=== PATIENT | male | born 1955 | race Caucasian/White ===

== ENCOUNTER 2020-04-21 12:16 | Outpatient (CLI) | payer MEDICARE, MEDICAID, SELFPAY ==
--- NOTE | 2020-04-21 12:27 | USCV_ITS ---
Eduin Grimes Age: 64 Gender: M : 1955 Exam Date: 04/21/2020 12:50 Ordering Phys: Hilda Turner MD Technologist: Kate Parks Exam Location: [facility] [place] Indication: MURMUR BP: / HR: 67 Rhythm: Sinus Technical Quality: Adequate MEASUREMENTS (Male / Female) Normal Values 2D ECHO LV Diastolic Diameter PLAX 3.5 cm 4.2 - 5.9 / 3.9 - 5.3 cm LV Systolic Diameter PLAX 2.2 cm LV Chamber Size 3.7 cm IVS Diastolic Thickness 1.0 cm 0.6 - 1.0 / 0.6 - 0.9 cm IVS Systolic Thickness 1.7 cm LVPW Diastolic Thickness 1.2 cm 0.6 - 1.0 / 0.6 - 0.9 cm LVPW Systolic Thickness 1.5 cm RV Chamber Size 2.5 cm LVOT Diameter 2.0 cm LV Ejection Fraction 2D Teich 70.0 % LV Ejection Fraction MOD 2C 65.8 % LV Ejection Fraction 2C AL 65.3 % LA Diameter 2.3 cm LA Width 3.2 cm LA Height 3.6 cm RA Width 4.1 cm RA Height 4.0 cm Aorta at Sinotubular Diameter 3.5 cm M-MODE LV Diastolic Diameter MM 4.6 cm 4.2 - 5.9 / 3.9 - 5.3 cm LV Systolic Diameter MM 3.2 cm LV Ejection Fraction MM Teich 56.2 % IVS Diastolic Thickness MM 1.0 cm 0.6 - 1.0 / 0.6 - 0.9 cm IVS Systolic Thickness MM 1.1 cm LVPW Diastolic Thickness MM 1.4 cm 0.6 - 1.0 / 0.6 - 0.9 cm LVPW Systolic Thickness MM 1.4 cm RV Diastolic Diameter MM 0.8 cm Aortic Annulus Diameter 3.9 cm LA Ao Ratio MM 0.6 MV E Point Septal Separation 0.7 cm DOPPLER AV Peak Velocity 247.0 cm/s LVOT Peak Velocity 80.0 cm/s AV Area Cont Eq vti 1.2 cm squared AV Area Cont Eq pk 1.0 cm squared MV Area PHT 3.1 cm squared Mitral E to A Ratio 0.7 MV E' Velocity 5.0 cm/s Mitral E to MV E' Ratio 11.4 Mitral E to LV E' Lateral Ratio 12.0 Mitral E to LV E' Septal Ratio 10.8 TR Peak Velocity 165.1 cm/s TR Peak Gradient 10.9 mmHg TR Mean Velocity 125.4 cm/s TR Mean Gradient 6.5 mmHg TR Velocity Time Integral 36.1 cm TV Peak E Velocity 49.0 cm/s Right Atrial Pressure 3.0 mmHg Pulmonary Artery Systolic Pressu 13.9 mmHg FINDINGS Left Ventricle Normal left ventricular size, systolic function and wall thickness, with no regional wall motion abnormalities. Grade I/IV diastolic dysfunction (abnormal relaxation filling pattern), normal to mildly elevated filling pressures. Left ventricular ejection fraction is estimated at 60 %. Right Ventricle Normal right ventricular size and systolic function. Normal right ventricular systolic pressure. Right Atrium The right atrium is normal in size. Left Atrium The left atrium is normal in size. Mitral Valve Structurally normal mitral valve without significant stenosis or prolapse. There is no mitral regurgitation. Aortic Valve Structurally normal trileaflet aortic valve. Moderate aortic valve stenosis, mean gradient 12.6 mmHg, DENNIS 1.2 cm squared. Moderate aortic valve regurgitation. Tricuspid Valve Structurally normal tricuspid valve. Trace tricuspid valve regurgitation. Pulmonic Valve Structurally normal pulmonic valve without significant stenosis. There is no pulmonic regurgitation. Pericardium Normal pericardium without effusion. Aorta Normal ascending aorta dimension. CONCLUSIONS Normal left ventricular size, systolic function and wall thickness, with no regional wall motion abnormalities. Grade I/IV diastolic dysfunction (abnormal relaxation filling pattern), normal to mildly elevated filling pressures. Left ventricular ejection fraction is estimated at 60 %. Structurally normal trileaflet aortic valve. Moderate aortic valve stenosis, mean gradient 12.6 mmHg, DENNIS 1.2 cm squared. Moderate aortic valve regurgitation. There are no prior echocardiogram studies to compare. Dr. Kleber Ritter MD (Electronically Signed) Final Date: 21 April 2020 15:48 S
== END 2020-04-21 12:17 | disposition home or self-care (01) ==
LOC: RAD 12:20
PROVIDERS: Visit Provider Specialist
DX: R01.1 Cardiac murmur, unspecified (principal); I35.0 Nonrheumatic aortic (valve) stenosis
CPT/HCPCS: 93306

== ENCOUNTER 2020-06-03 07:29 | Outpatient (CLI) | payer MEDICARE, MEDICAID, SELFPAY ==
[2020-06-03 08:01] VITALS: BMI 23.9
--- NOTE | 2020-06-03 08:04 | ECG_ITS ---
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 Interpretive Statements NAME OF STUDY: LEXISCAN SESTAMIBI STRESS TEST INDICATION: Shortness of Breath PROCEDURE: At the baseline, the EKG revealed normal sinus rhythm with a poor R wave progression. Normal ST-T's. Possible old lateral wall VT. The baseline blood pressure was 115/81 mm Hg with a heart rate of 71 beats/min. Lexiscan was infused over a period of 20 seconds. A total of 0.4 milligrams of Lexiscan was infused. The stress phase was continued for a total of 5 minutes. Heart rate at the end of the stress phase was 90 with a blood pressure 127/85. The EKG at the peak infusion revealed no significant changes. Sestamibi was injected 20 seconds after the Lexiscan infusion. Blood pressure at the end of the recovery phase was 119/77 with a heart rate of 86 per minute. CONCLUSION: 1. No significant EKG changes with the LexiScan infusion 2. No LexiScan induced chest pain or cardiac arrhythmia 3. Normal blood pressure and heart rate response 4. Sestamibi/sestamibi perfusion scan pending; see separate report. Electronically Signed On 06-03-2020 20:25:12 CDT by Caroline Geiger M.D. [id number]
--- NOTE | 2020-06-03 08:05 | NMCV_ITS ---
NM alejandra perf SPECT r/s* [id number] Eduin Grimes Age: 64 Gender: M : 1955 Exam Date: 06/03/2020 08:24 Ordering Phys: Caroline Geiger MD ([email or web address]) Technologist: FARZANA Kay Exam Location: [facility] Indications: SOB, abnormal EKG STRESS TEST Please see separate stress test report in [facility] for full findings IMAGE PROTOCOL Rest/Stress 1 Lexiscan Day Radiopharmaceutical Dose (mCi) Administration Site Administered by Rest: Tc-99m 10.9 IV Dana Odilon, INSPECTOR METAL FABRICATING Sestamibi Stress:Tc-99m 32.8 IV Dana Odilon, INSPECTOR METAL FABRICATING Sestamibi Rest: 03-Jun-2020 60 Discovery 630 Stress: 03-Jun-2020 45 Discovery 630 0.4mg Lexiscan. Images obtained in supine and prone position. SPECT RESULTS Technical Quality: Good Raw Data Analysis: Normal Image Corrections: No attenuation or motion correction applied Summed Stress Score: 2 Summed Rest Score: 3 Summed Difference Score: 0 PERFUSION FINDINGS Small area of decreased tracer uptake in the apical inferior and LV apex with no significant reversibility FUNCTIONAL RESULTS (calculated via Gated SPECT) Stress Image LV EF (%): 56 Stress EDV (mL):97 TID: 1.05 Stress ESV (mL):43 FUNCTIONAL FINDINGS: Segmental wall motion analysis revealing no gross wall motion normalities. IMPRESSIONS 1. Myocardial perfusion imaging revealing small area of persistent decreases uptake in the apical inferior and LV apex, suggestive of myocardial scarring/attenuation artifact. 2. Normal ejection fraction 56%. 3. LV wall motion analysis revealing no gross wall motion normalities. 4. LV volume, upper limit of normal. No significant coronary ischemia, based on the above findings Dr Caroline Geiger MD FACC (Electronically Signed) Final Date: 03 June 2020 14:22 S
--- NOTE | 2020-06-03 09:19 | SUR.PHASEII ---
INTRA STRESS NOTE Patient unable to meet the physical demands of the treadmill. HR reached 122 bpm at maximum before fatigue set in and the patient could no longer continue. MD notification attempted, but no response at this time. Will try back for orders to change stress modality to Lexiscan as patient cannot complete the physical exercise portion of the exam. Patient adequately prepped for Lexiscan.
[2020-06-03] MEDS: regadenoson 0.4 Mg/5 ml Syringe IVP (09:31)
[2020-06-03 09:39] VITALS: BP 125/79; PULSE 88
== END 2020-06-03 07:30 | disposition home or self-care (01) ==
LOC: RAD 07:55 → CDL 07:55
PROVIDERS: Visit Provider Internal Medicine Cardiovascular Disease
DX: R06.02 Shortness of breath (principal); R94.31 Abnormal electrocardiogram [ECG] [EKG]
CPT/HCPCS: 78452; 93017; A9500; J2785

== ENCOUNTER 2020-06-18 10:53 | Emergency (ER) | payer MEDICARE, MEDICAID, SELFPAY ==
[2020-06-18 10:54] VITALS: BP 161/105; PULSE 83; RESP 17; TEMP 36.7; O2SAT 97; BMI 23.9
--- NOTE | 2020-06-18 10:59 | CT_ITS ---
WS: [id number] CT NECK WITH CONTRAST HISTORY: abscess TECHNIQUE: Contiguous 5 mm axial images are performed through the neck with intravenous contrast. Sag ittal and coronal reformats are also submitted. All CT scans at [facility] use at least o ne of these dose optimization techniques: automated exposure control; mA and/or kV adjustment per pat ient size (includes targeted exams where dose is matched to clinical indication); or iterative recons truction. CONTRAST: CONTRAST: Omnipaque 300; 95 mL IV. DLP: 709.73 mGy.cm COMPARISON: None available. Low-attenuation mass centered in the LEFT palatine tonsillar bed extends over a length of 3.4 cm x 2. 3 x 3.5 cm. Low attenuation in the central surrounded by mild peripheral enhancement. There is extens ion into the parapharyngeal soft tissue fat and mild mass effect upon the oropharynx. Cervical chain lymph nodes are present bilaterally but greatest on the LEFT. Largest lymph node measures up to 12 mm . No extension of the inflammatory process across the midline. Thyroid gland and salivary glands are normally enhancing with no masses. No osseous abnormalities. Visualized portions of the skull base demonstrate no abnormalities. Orbits and globes are within norm al limits. No soft tissue masses. Visualized paranasal sinuses and mastoid air cells are normal. Lung apices are clear. CT/CT neck w con* [id number] IMPRESSION: 1. LEFT tonsillar tonsillar bed abscess measuring 3.4 x 2.3 x 3.5 cm. 2. Reactive lymphadenopathy most significant on the LEFT neck.
--- NOTE | 2020-06-18 11:00 | ED_ITS ---
HPI - Syncope General: Chief Complaint: Syncope Stated Complaint: SEIZURE/ DEHYDRATION/ JAW PAIN Time Seen by Provider: 06/18/20 10:56 Source: patient and EMS Mode of arrival: EMS Limitations: no limitations History of Present Illness: HPI narrative: 64-year-old male states he was standing in line today started feeling lightheaded and had a seizure. 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 EMS states he is originally postictal but is now awake and alert. He states he feels dehydrated as he has had throat pain and difficulty swallowing and has had limited oral intake due to this. He states his throat pain is been going on for 2 days and rates it a 7 out of 10. Denies any fevers. Associated symptoms: Deny abdominal pain, chest pain, fever(s) or nausea Review of Systems Const: Denies: fever(s), chills, body aches or change in appetite Eyes: Denies: blurry vision or eye discomfort ENMT: Reports: throat pain Card: Denies: chest pain Resp: Denies: dyspnea GI: Denies: abdominal pain, nausea, vomiting or diarrhea : Denies: dysuria Musc: Denies: neck pain or back pain Skin/Breast: Denies: rash Neuro: Reports: seizure-like activity Psych: Denies: depression Abdullahi/Lymph: Denies: easy bruising All/Imm: Denies: urticaria PFSH ED PFSH: Medical History Abuse of smoked substance Aortic valve stenosis, acquired Elevated blood pressure reading Shortness of breath on exertion The EKG done on 05/11/2020 revealed sinus rhythm with poor our progression. Some nonspecific ST- T wave changes. Surgical History History of rotator cuff surgery Family History Other Family history unknown Social History Smoking and tobacco status: current every day smoker cigarettes Packs smoked per day: 1 Alcohol intake: current Alcohol intake frequency: holidays/special occasions only Desire information about substance/drug rehabilitation?: No History of recent travel: No Physical Exam Const: COMMON NORMALS: no acute distress, patient oriented x3 and healthy appearing HENMT: COMMON NORMALS: normocephalic and atraumatic HEAD & SCALP: normocephalic and atraumatic OTHER: Uvular deviation to the right with likely peritonsillar abscess to left tonsil. No problems handling secretions or swallowing Eye: COMMON NORMALS: Equal, round and reactive pupils present and EOMs intact bilaterally PUPIL: Yes Equal, round and reactive pupils present Neck/C-Spine: COMMON NORMALS: full ROM and supple Chest: COMMONS NORMALS: normal inspection of the chest and normal palpation of entire chest wall Resp: COMMON NORMALS: normal respiratory effort, No retractions, No use of accessory muscles and clear to auscultation bilaterally AUSCULTATION: clear to auscultation bilaterally Cardio: COMMON NORMALS: regular rate, regular rhythm and No murmurs present (Cardio) RATE: regular rate RHYTHM: regular rhythm GI: COMMON NORMALS: Normal to inspection, nondistended, normoactive bowel sounds present, Soft to palpation, non-tender and no masses PALPATION: Yes Soft to palpation Extremity: COMMON NORMALS: normal to inspection and full ROM Neuro: COMMON NORMALS: patient oriented x3, moves all extremities and no focal motor deficits Psych: COMMON NORMALS: mental status grossly normal, Normal thought process present and cooperative THOUGHT PROCESS: Normal thought process present Skin: COMMON NORMALS: no rashes or lesions noted and no wounds GENERAL SKIN EXAM: no rashes or lesions noted Course Vital Signs: Vital signs: Vital Signs Temperature 98.0 F 06/18/20 10:54 Pulse Rate 82 06/18/20 12:23 Respiratory Rate 20 H 06/18/20 12:23 Blood Pressure 162/97 06/18/20 12:23 Pulse Oximetry 98 06/18/20 12:23 MDM - Syncope MDM Narrative: Medical decision making narrative: Eduin presents here with a seizure and does have a long history of seizures. Patient is back to baseline here. Patient does have a peritonsillar abscess that is not causing any airway compromise. He is handling his secretions well. Patient given Decadron and clindamycin here. I spoke to Dr. Patel's office and he has an appointment in the morning with Dr. Patel. I informed patient is very important that he follows up with Dr. Patel as scheduled. Patient is to return if he has any worsening. He understands and agrees to plan. Lab Data: Labs: Lab Results 06/18/20 06/18/20 Range/Units 11:17 11:17 WBC 13.1 H (4.0-10.0) 10^3/ uL RBC 4.24 (4.1-5.3) 10^6/u L Hgb 14.2 (11.7-16.6) g/dL Hct 43.1 (42.0-52.0) % MCV 101.7 H (80-94) fL MCH 33.5 (28.0-34.0) pg MCHC 32.9 (30.0-36.0) g/dL RDW 13.2 (12.1-15.1) % Plt Count 190 (130-400) 10^3/c mm MPV 9.4 (7.4-10.4) fL Neut % (Auto) 80.0 % Lymph % (Auto) 9.1 % Stafford % (Auto) 9.3 % Eos % (Auto) 0.8 % Baso % (Auto) 0.3 % Neut # (Auto) 10.44 H (1.8-7.7) 10^3/u L Lymph # (Auto) 1.2 (0.8-4.8) 10^3/u L Stafford # (Auto) 1.2 H (0.2-0.9) 10^3/u L Eos # (Auto) 0.1 (0.0-0.8) 10^3/u L Baso # (Auto) 0.0 (0.0-0.1) 10^3/u L Nucleated RBC % (a uto) 0 % Nucleated RBCs # 0.0 /100WBC Sodium 140 (136-145) mmol/L Potassium 3.7 (3.5-5.1) mmol/L Chloride 106 (98-107) mmol/L Carbon Dioxide 27 (22-29) mmol/L Anion Gap 10.7 (5-19) BUN 12 (8-23) mg/dL Creatinine 1.0 (0.7-1.2) mg/dL GFR Calculation 75.7 L (90-130) mL/min Glucose 94 (65-115) mg/dL Calculated Osmolal ity 286 (285-295) mOsm/k g Calcium 8.4 L (8.5-10.5) mg/dL Imaging Data^: ct neck: Radiologist's impression: [address] [place] [address] CT Scan Report Signed Patient: Eduin Grimes Unit #: [id number] : 1955 Age/Sex: 64 / M ADM Date: 06/18/20 Loc: ER Room/Bed: Attending Dr: Ordering Provider/Ordering MD: Belkys Thomas MD Date of Service: 06/18/20 Procedure(s): CT neck w con* [id number] Accession Number(s): [id number] Report Number: [id number] WS: [id number] CT NECK WITH CONTRAST HISTORY: abscess TECHNIQUE: Contiguous 5 mm axial images are performed through the neck with intravenous contrast. Sagittal and coronal reformats are also submitted. All CT scans at [facility] use at least one of these dose optimization techniques: automated exposure control; mA and/or kV adjustment per patient size (includes targeted exams where dose is matched to clinical indication); or iterative reconstruction. CONTRAST: CONTRAST: Omnipaque 300; 95 mL IV. DLP: 709.73 mGy.cm COMPARISON: None available. Low-attenuation mass centered in the LEFT palatine tonsillar bed extends over a length of 3.4 cm x 2.3 x 3.5 cm. Low attenuation in the central surrounded by mild peripheral enhancement. There is extension into the parapharyngeal soft tissue fat and mild mass effect upon the oropharynx. Cervical chain lymph nodes are present bilaterally but greatest on the LEFT. Largest lymph node measures up to 12 mm. No extension of the inflammatory process across the midline. Thyroid gland and salivary glands are normally enhancing with no masses. No osseous abnormalities. Visualized portions of the skull base demonstrate no abnormalities. Orbits and globes are within normal limits. No soft tissue masses. Visualized paranasal sinuses and mastoid air cells are normal. Lung apices are clear. CT/CT neck w con* [id number] IMPRESSION: 1. LEFT tonsillar tonsillar bed abscess measuring 3.4 x 2.3 x 3.5 cm. 2. Reactive lymphadenopathy most significant on the LEFT neck. Discharge Plan Discharge Patient Disposition: Home Clinical Impression: Abscess, peritonsillar, Seizure Condition: Stable Prescriptions: New clindamycin HCl 300 mg capsule 300 mg PO Q8H 10 Days Qty: 30 RF: 0 No Action ibuprofen 200 mg capsule 200 mg PO Q8H PRN (Reason: Pain) RF: 0 lamotrigine 200 mg tablet 200 mg PO BID RF: 0 clobazam [Onfi] 20 mg tablet 40 mg PO BID Qty: 120 RF: 5 Discharge Orders: Discharge Order (Routine); Ordered 06/18/20 Ordered By: Belkys Thomas Referrals: Mendel Mari MD [Physician] - 1-3 days Discharge Diet: Advance as tolerated Discharge Activity: Resume usual activity Patient Instructions: Peritonsillar Abscess (ED) Discharge Date/Time: 06/18/20 13:37 Coding Level of Care Code ED Elementary Instructional Coach for [employer] Fwd Exam Comprehensive
[2020-06-18 11:09] VITALS: BP 181/103; PULSE 84; RESP 18; O2SAT 97
[2020-06-18] MEDS: sodium chloride 0.9% 1,000 ML 999 ML IV (11:18)
[2020-06-18] MEDS: dexamethasone 10 mg/mL INJ IVP (11:18)
[2020-06-18 11:26] LABS: Basophils % 0.3 %; Eosinophils # 0.1 10^3/uL (0.0-0.8); Eosinophils % 0.8 %; Hematocrit 43.1 % (42.0-52.0); Hemoglobin 14.2 g/dL (11.7-16.6); Lymphocytes # 1.2 10^3/uL (0.8-4.8); Lymphocytes % 9.1 %; Mean Corpuscular HGB Conc 32.9 g/dL (30.0-36.0); Mean Corpuscular Hemoglobin 33.5 pg (28.0-34.0); Mean Corpuscular Volume 101.7 fL (80-94); Mean Platelet Volume 9.4 fL (7.4-10.4); Monocytes # 1.2 10^3/uL (0.2-0.9); Monocytes % 9.3 %; Neutrophils # 10.44 10^3/uL (1.8-7.7); Nucleated Red Blood Cells % 0 %; Platelet Count 190 10^3/cmm (130-400); Red Blood Count 4.24 10^6/uL (4.1-5.3); Red Cell Distribution Width 13.2 % (12.1-15.1); White Blood Count 13.1 10^3/uL (4.0-10.0)
[2020-06-18 11:54] LABS: Anion Gap 10.7 (5-19); Blood Urea Nitrogen 12 mg/dL (8-23); Calcium 8.4 mg/dL (8.5-10.5); Carbon Dioxide 27 mmol/L (22-29); Chloride 106 mmol/L (98-107); Glomerular Filtration Rate 75.7 mL/min (90-130); Glucose 94 mg/dL (65-115); Osmolality Calculated 286 mOsm/kg (285-295); Potassium 3.7 mmol/L (3.5-5.1); Sodium 140 mmol/L (136-145)
[2020-06-18] MEDS: clindamycin 900 MG/50 ML PREMIX 100 MG IV (12:21)
[2020-06-18 12:23] VITALS: BP 162/97; PULSE 82; RESP 20; O2SAT 98
--- NOTE | 2020-06-18 13:03 | ECG_ITS ---
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 Measurements Intervals [place] Rate: 84 P: 77 UT: 162 QRS: -2 QRSD: 84 T: 37 QT: 340 QTc: 402 Interpretive Statements SINUS RHYTHM No previous ECG available for comparison Electronically Signed On 06-18-2020 21:07:06 CDT by Caroline Geiger M.D. [id number]
[2020-06-18 13:22] VITALS: BP 122/66; PULSE 98; RESP 18; TEMP 37; O2SAT 96
--- NOTE | 2020-06-18 13:32 | DCPLANNER ---
java manager was asked to schedule a follow up appointment for patient with Dr. Mari. java manager called the office of Dr. Mari, spoke with [place], a follow up appointment is scheduled for Friday, June 19, 2020 at 9:[address] Mari.
--- NOTE | 2020-06-24 13:30 | DCPLANNER ---
Patient did attend appointment scheduled for 06.19.[address] Mari.
== END 2020-06-18 13:37 | disposition home or self-care (01) ==
PROVIDERS: Emergency Provider Emergency Medicine
DX: J36 Peritonsillar abscess (principal); R56.9 Unspecified convulsions; F17.210 Nicotine dependence, cigarettes, uncomplicated
CPT/HCPCS: 12345; 36415; 70491; 80048; 85025; 93005; 96365; 96375; 99283; 99284; J1100; J3490; J7030

== ENCOUNTER → 2020-08-10 08:42 | Outpatient (BNVA) | payer MEDICARE, MEDICAID, SELFPAY | PROVIDERS: PCP Family Medicine; Visit Provider Specialist | DX: G40.909 Epilepsy, unspecified, not intractable, without status epilepticus (principal); I35.0 Nonrheumatic aortic (valve) stenosis | CPT/HCPCS: 99214 ==

== ENCOUNTER → 2020-11-25 10:56 | Outpatient (BNVA) | payer MEDICARE, MEDICAID, SELFPAY | PROVIDERS: PCP Family Medicine; Visit Provider Nurse Practitioner Family | DX: J06.9 Acute upper respiratory infection, unspecified (principal); Z20.828 Contact with and (suspected) exposure to other viral communicable diseases | CPT/HCPCS: 87635 ==

== ENCOUNTER → 2021-01-27 08:29 | Outpatient (BNVA) | payer MEDICARE, MEDICAID, SELFPAY | PROVIDERS: PCP Family Medicine; Visit Provider Specialist | DX: G40.219 Localization-related (focal) (partial) symptomatic epilepsy and epileptic syndromes with complex partial seizures, intractable, without status epilepticus (principal); G40.909 Epilepsy, unspecified, not intractable, without status epilepticus; I35.0 Nonrheumatic aortic (valve) stenosis; M54.16 Radiculopathy, lumbar region; F17.210 Nicotine dependence, cigarettes, uncomplicated | CPT/HCPCS: 99214 ==

== ENCOUNTER → 2021-08-03 07:59 | Outpatient (BNVA) | payer MEDICARE, MEDICAID, SELFPAY | PROVIDERS: PCP Family Medicine; Visit Provider Specialist | DX: G40.219 Localization-related (focal) (partial) symptomatic epilepsy and epileptic syndromes with complex partial seizures, intractable, without status epilepticus (principal); G40.909 Epilepsy, unspecified, not intractable, without status epilepticus; I35.0 Nonrheumatic aortic (valve) stenosis; F32.9 Major depressive disorder, single episode, unspecified; M54.16 Radiculopathy, lumbar region; G89.29 Other chronic pain; F17.210 Nicotine dependence, cigarettes, uncomplicated | CPT/HCPCS: 99214 ==

== ENCOUNTER → 2021-08-24 12:41 | Outpatient (BNVA) | payer MEDICARE, MEDICAID, SELFPAY | PROVIDERS: PCP Family Medicine; Visit Provider Specialist | DX: G40.209 Localization-related (focal) (partial) symptomatic epilepsy and epileptic syndromes with complex partial seizures, not intractable, without status epilepticus (principal); G40.409 Other generalized epilepsy and epileptic syndromes, not intractable, without status epilepticus; G43.711 Chronic migraine without aura, intractable, with status migrainosus; M54.16 Radiculopathy, lumbar region; F32.9 Major depressive disorder, single episode, unspecified; I35.0 Nonrheumatic aortic (valve) stenosis; F17.210 Nicotine dependence, cigarettes, uncomplicated | CPT/HCPCS: 99214 ==

== ENCOUNTER → 2021-08-27 10:11 | Outpatient (BNVA) | payer MEDICARE, MEDICAID, SELFPAY | PROVIDERS: PCP Family Medicine; Visit Provider Nurse Practitioner Family | DX: J02.9 Acute pharyngitis, unspecified (principal); B37.0 Candidal stomatitis | CPT/HCPCS: 80053; 85025 ==

== ENCOUNTER 2021-08-31 16:37 | Outpatient (CLI) | payer MEDICARE, MEDICAID, SELFPAY ==
--- NOTE | 2021-08-31 17:30 | MR_ITS ---
WS: [id number] MRI LUMBAR SPINE NONCONTRAST TECHNIQUE: Sagittal T1, T2 and STIR imaging. Axial T1 and T2 imaging. CLINICAL INFORMATION: M54.16 - Radiculopathy, lumbar region COMPARISON: MRI 2012 FINDINGS: Mild lumbar curve. No acute compression. No high-grade central canal stenosis. Disc bulging worse L5-S1. L1-L2: Mild annular bulging. Tiny annular fissure. Spinal canal and foramen are patent. Mild facet ar thropathy. L2-L3: Mild annular bulging with slight narrowing of the subarticular recess bilaterally. Moderate fa cet arthropathy. Tiny right foraminal protrusion with mild right foraminal narrowing slightly progres sed since 2012. L3-L4: Mild annular bulging with slight effacement of the ventral thecal sac. Slight narrowing of the subarticular recess bilaterally. Moderate facet arthropathy with small facet effusions. Small bilate ral foraminal protrusions right greater than left foraminal narrowing. Slight impingement on the exit ing L3 nerve roots. L4-L5: Mild annular bulging with slight impingement on the traversing left greater than right L5 nerv e roots. Moderate facet arthropathy with small facet effusions. Right foraminal protrusion impinges t he exiting L4 nerve root with moderate right foraminal narrowing. Mild left foraminal narrowing. Mild central canal stenosis. L5-S1: Mild disc bulging with osteophytic ridging. Impingement on the traversing right greater than l eft S1 nerve roots. Mild central canal stenosis. Mild right greater than left foraminal narrowing. Sl ight impingement on the exiting right L5 nerve root. Mild facet arthropathy. Left renal cyst partially visualized measuring 2.8 cm. Slight anterolisthesis C6 on C7 with disc osteophytic ridging. Mild central canal stenosis as seen on the vacuum frame operator imaging. Chronic appearing compression with anterior wedging in the upper thoracic spine a t T4, T5, T6, T7 worse at T7 with biconcave compression anterior wedging. Loss of approximately 50% v ertebral body height anteriorly at T7 MR/MR lumbar spine wo con* [id number] IMPRESSION: 1. Mild lumbar curve. No acute compression. No high-grade central canal stenos is. 2. Mild annular bulging L3-L4 and L4-L5 with slight effacement of ventral thec al sac. Impingement on the traversing left L5 nerve root and subarticular reces s unchanged since 2012. Right foraminal protrusion L4-L5 impinges the exiting r ight L4 nerve root with moderate right foraminal narrowing. This appears slight ly progressed compared to previous. 3. Disc bulging with osteophytic ridging L5-S1 impinges the traversing right S 1 nerve root in the subarticular recess. This is unchanged since 2012. Mild to moderate right L5-S1 foraminal narrowing similar in appearance. 4. Small bilateral foraminal protrusions L3-4 right greater than left impinges the exiting right greater than left L3 nerve roots. Correlation for L3 nerve r oot symptoms. This appears slightly progressed compared to 2012. 5. Tiny right foraminal protrusion L2-3 with mild right foraminal narrowing sl ightly progressed compared to previous. 6. Moderate facet arthropathy worse at L3-4 with small bilateral facet effusio ns is unchanged since 2012 consistent with mild synovitis 7. Slight anterolisthesis C6 on C7 with disc osteophytic ridging. Mild central canal stenosis. As seen on the vacuum frame operator imaging. 8. Chronic appearing anterior wedging in the upper thoracic spine vacuum frame operator imagin g not included on the 2012 study described above.
== END 2021-08-31 16:38 | disposition home or self-care (01) ==
LOC: RADSHAW 16:43
PROVIDERS: PCP Family Medicine; Visit Provider Specialist
DX: G89.29 Other chronic pain (principal); M54.16 Radiculopathy, lumbar region; M54.9 Dorsalgia, unspecified
CPT/HCPCS: 72148

== ENCOUNTER 2021-09-21 12:04 | Outpatient (CLI) | payer MEDICARE, MEDICAID, SELFPAY ==
--- NOTE | 2021-09-21 11:45 | MR_ITS ---
WS: [id number] MRI THORACIC SPINE noncontrast. HISTORY: M54.16 - Radiculopathy, lumbar region COMPARISON: None available. TECHNIQUE: Multiplanar sequences are performed in sagittal and axial planes. Moderate increase in kyphosis centered in the upper thoracic spine. Mild anterior wedging of T3, T4, T5, T6 and T7. The most significant compression deformities are T4 and T7. No retropulsion. No marrow edema to suggest these are acute. Signal within the cord is normal. T1-2: Normal. T2-3: Normal. T3-4: Mild facet arthritis with mild foraminal narrowing. T4-5: Mild foraminal narrowing. T5-6: Normal. T6-7: Mild facet arthritis and foraminal narrowing. T7-8: Moderate facet joint arthritis. Mild RIGHT and moderate LEFT foraminal stenosis. T8-9: Moderate bilateral facet joint arthritis causing moderate foraminal stenosis. T9-10: Moderate bilateral foraminal stenosis due to facet arthritis. T10-11: Mild foraminal narrowing. Facet arthritis. T11-12: Normal. Mild ectasia thoracic aorta. No aneurysm. MR/MR thoracic spin wo con* [id number] IMPRESSION: 1. Chronic anterior compression fractures from T4 through T7. Most significant deformity involving T4 at 30% and T7 at 50%. No retropulsion of any of these c ompression fractures. 2. Multilevel facet joint arthritis causing foraminal narrowing throughout the thoracic spine. Most significant from T7-8 through T9-10.
== END 2021-09-21 12:05 | disposition home or self-care (01) ==
LOC: RADSHAW 12:10
PROVIDERS: PCP Family Medicine; Visit Provider Specialist
DX: M54.16 Radiculopathy, lumbar region (principal)
CPT/HCPCS: 72146; 87070; 87077; 87880

== ENCOUNTER 2021-10-28 07:51 | Outpatient (CLI) | payer MEDICARE, MEDICAID, SELFPAY ==
--- NOTE | 2021-10-28 08:00 | USCV_ITS ---
Eduin Grimes Age: 66 Gender: M : 1955 Exam Date: 10/28/2021 08:03 Ordering Phys: Caroline Geiger MD ([email or web address]) Technologist: Exam Location: [facility] – [place] Indication: CHEST PAIN BP: 127 / 74 HR: 68 Rhythm: Sinus Technical Quality: , Adequate MEASUREMENTS (Male / Female) Normal Values 2D ECHO LV Diastolic Diameter PLAX 4.2 cm 4.2 - 5.9 / 3.9 - 5.3 cm LV Systolic Diameter PLAX 2.8 cm IVS Diastolic Thickness 0.9 cm 0.6 - 1.0 / 0.6 - 0.9 cm IVS Systolic Thickness 1.2 cm LVPW Diastolic Thickness 1.0 cm 0.6 - 1.0 / 0.6 - 0.9 cm LVPW Systolic Thickness 1.2 cm LVOT Diameter 2.1 cm LV Ejection Fraction 2D Teich 63.6 % LV Ejection Fraction MOD 2C 54.0 % LV Ejection Fraction 2C AL 53.3 % LA Diameter 3.8 cm LA Width 3.8 cm LA Height 3.9 cm RA Width 3.0 cm RA Height 4.5 cm Aorta at Sinotubular Diameter 3.5 cm M-MODE MV E Point Septal Separation 2.5 cm DOPPLER AV Peak Velocity 214.0 cm/s LVOT Peak Velocity 87.0 cm/s AV Area Cont Eq vti 1.4 cm squared AV Area Cont Eq pk 1.4 cm squared MV Area PHT 5.0 cm squared Mitral E to A Ratio 0.7 MV E' Velocity 35.5 cm/s Mitral E to MV E' Ratio 7.3 Mitral E to LV E' Lateral Ratio 5.8 Mitral E to LV E' Septal Ratio 9.8 TR Peak Velocity 199.0 cm/s TR Peak Gradient 15.8 mmHg TV Peak E Velocity 76.0 cm/s Right Atrial Pressure 3.0 mmHg Pulmonary Artery Systolic Pressu 18.8 mmHg FINDINGS Left Ventricle Normal LV size with a borderline low ejection fraction of 50 to 55%. Mild diffuse hypokinesis inferolateral wall segment.Grade I/IV diastolic dysfunction (abnormal relaxation filling pattern), normal to mildly elevated filling pressures. Right Ventricle The right ventricle is normal in size and function. Right Atrium The right atrium is normal in size. Left Atrium The left atrium is normal in size. Mitral Valve Thickened mitral valve. Aortic Valve Thickened aortic valve. Moderate aortic valve regurgitation. Features of aortic valve sclerosis Tricuspid Valve No gross abnormalities noted no gross abnormalities noted Pulmonic Valve Pulmonic valve not well visualized. Pericardium Normal pericardium without effusion. Aorta Normal ascending aorta dimension. CONCLUSIONS Normal LV size with a borderline low ejection fraction of 50 to 55%. Mild diffuse hypokinesis inferolateral wall segment.Grade I/IV diastolic dysfunction (abnormal relaxation filling pattern), normal to mildly elevated filling pressures. Thickened mitral valve. Features of aortic valve sclerosis Moderate aortic valve regurgitation. There is no pericardial effusion. There are no intracardiac masses. Compared to the study from 04/21/2020, there may be significant Dr Caroline Geiger MD FACC (Electronically Signed) Final Date: 29 October 2021 00:37 S
== END 2021-10-28 07:52 | disposition home or self-care (01) ==
LOC: US 07:52
PROVIDERS: PCP Family Medicine; Visit Provider Internal Medicine Cardiovascular Disease
DX: R06.00 Dyspnea, unspecified (principal); R07.9 Chest pain, unspecified; I08.0 Rheumatic disorders of both mitral and aortic valves
CPT/HCPCS: 93306

== ENCOUNTER → 2021-11-16 07:59 | Outpatient (BNVA) | payer MEDICARE, MEDICAID, SELFPAY | PROVIDERS: PCP Family Medicine; Visit Provider Specialist | DX: G40.219 Localization-related (focal) (partial) symptomatic epilepsy and epileptic syndromes with complex partial seizures, intractable, without status epilepticus (principal); G40.319 Generalized idiopathic epilepsy and epileptic syndromes, intractable, without status epilepticus; S22.000A Wedge compression fracture of unspecified thoracic vertebra, initial encounter for closed fracture; M48.061 Spinal stenosis, lumbar region without neurogenic claudication; M47.812 Spondylosis without myelopathy or radiculopathy, cervical region; Y93.9 Activity, unspecified | CPT/HCPCS: 99215 ==

== ENCOUNTER → 2021-11-24 08:30 | Outpatient (BNVA) | payer MEDICARE, MEDICAID, SELFPAY | PROVIDERS: PCP Family Medicine; Visit Provider Nurse Practitioner | DX: R22.33 Localized swelling, mass and lump, upper limb, bilateral (principal) | CPT/HCPCS: 85025 ==

== ENCOUNTER → 2022-02-08 09:05 | Outpatient (BNVA) | payer MEDICARE, MEDICAID, SELFPAY | PROVIDERS: PCP Family Medicine; Visit Provider Specialist | DX: G40.119 Localization-related (focal) (partial) symptomatic epilepsy and epileptic syndromes with simple partial seizures, intractable, without status epilepticus (principal); G40.419 Other generalized epilepsy and epileptic syndromes, intractable, without status epilepticus; F32.9 Major depressive disorder, single episode, unspecified; M47.812 Spondylosis without myelopathy or radiculopathy, cervical region; M48.061 Spinal stenosis, lumbar region without neurogenic claudication; G43.711 Chronic migraine without aura, intractable, with status migrainosus; I35.0 Nonrheumatic aortic (valve) stenosis; F18.10 Inhalant abuse, uncomplicated; F17.210 Nicotine dependence, cigarettes, uncomplicated | CPT/HCPCS: 99214 ==

== ENCOUNTER → 2022-12-06 08:32 | Outpatient (BNVA) | payer MEDICARE, MEDICAID, SELFPAY | PROVIDERS: PCP Family Medicine; Visit Provider Specialist | DX: R20.0 Anesthesia of skin (principal); G40.109 Localization-related (focal) (partial) symptomatic epilepsy and epileptic syndromes with simple partial seizures, not intractable, without status epilepticus; G40.409 Other generalized epilepsy and epileptic syndromes, not intractable, without status epilepticus; R26.81 Unsteadiness on feet; R42 Dizziness and giddiness; R20.2 Paresthesia of skin | CPT/HCPCS: 36415; 80175; 84443; 99214 ==

== ENCOUNTER 2022-12-21 13:10 | Outpatient (CLI) | payer MEDICARE, MEDICAID, SELFPAY ==
--- NOTE | 2022-12-21 13:00 | USCV_ITS ---
Eduin Grimes Age: 67 Gender: M : 1955 Exam Date: 12/21/2022 13:55 Ordering Phys: Becca Sung CORE CHECKER-C Technologist: CT Exam Location: [facility] – [place] Indication: injury to knee PROCEDURES: Venous duplex imaging was performed in only the left lower extremity. The following venous structures were evaluated: common femoral vein, profunda vein, proximal portion of the greater saphenous vein, superficial femoral vein, and the popliteal vein. In addition, the posterior tibial and peroneal trunk were evaluated. On the left side, the common femoral, superficial femoral, profunda femoral, popliteal, posterior tibial, greater saphenous veins, and the peroneal trunk were identified and interrogated in the standard fashion. These veins were found to be easily compressible with spontaneous blood flow. No evidence of insufficiency or thrombus noted. CONCLUSIONS No evidence of left lower extremity DVT. Dustin Fischer MD (Electronically Signed) Final Date: 21 December 2022 17:07 S
== END 2022-12-21 13:11 | disposition home or self-care (01) ==
LOC: RAD 13:10
PROVIDERS: PCP Family Medicine; Visit Provider Nurse Practitioner Family
DX: M79.605 Pain in left leg (principal); M79.89 Other specified soft tissue disorders; R06.02 Shortness of breath
CPT/HCPCS: 93971

== ENCOUNTER 2022-12-23 14:40 | Outpatient (CLI) | payer MEDICARE, MEDICAID, SELFPAY ==
--- NOTE | 2022-12-23 15:02 | XR_ITS ---
WS: [id number] XR knee LT 4V 68030 REASON FOR EXAM: S81.802A - Unspecified open wound, left lower leg, initia... FINDINGS: No periosteal reaction or focal bone lesion. Joint spaces of the left knee are intact and relatively well-preserved. No radiopaque foreign body. XR/XR knee LT 4V [id number] IMPRESSION: No significant abnormality.
[2022-12-23 16:06] LABS: Basophils # 0.1 10^3/uL (0.0-0.1); Basophils % 1.2 %; Eosinophils # 0.4 10^3/uL (0.0-0.8); Eosinophils % 5.9 %; Hematocrit 47.1 % (42.0-52.0); Hemoglobin 15.1 g/dL (11.7-16.6); Lymphocytes # 1.5 10^3/uL (0.8-4.8); Lymphocytes % 22.6 %; Mean Corpuscular HGB Conc 32.1 g/dL (30.0-36.0); Mean Corpuscular Hemoglobin 31.7 pg (28.0-34.0); Mean Corpuscular Volume 98.7 fl (80-94); Mean Platelet Volume 9.5 fL (7.4-10.4); Monocytes # 0.7 10^3/uL (0.2-0.9); Monocytes % 10.1 %; Neutrophils # 4.05 10^3/uL (1.8-7.7); Neutrophils % 59.6 %; Nucleated Red Blood Cells % 0 %; Platelet Count 202 10^3/cmm (130-400); Red Blood Count 4.77 10^6/uL (4.1-5.3); Red Cell Distribution Width 13.6 % (12.1-15.1); White Blood Count 6.8 10^3/uL (4.0-10.0)
== END 2022-12-23 14:41 | disposition home or self-care (01) ==
LOC: RAD 14:53
PROVIDERS: PCP Thoracic Surgery (Cardiothoracic Vascular Surgery); Visit Provider Thoracic Surgery (Cardiothoracic Vascular Surgery)
DX: S81.802A Unspecified open wound, left lower leg, initial encounter (principal); X58.XXXA Exposure to other specified factors, initial encounter
CPT/HCPCS: 36415; 73564; 85025; 99214

== ENCOUNTER → 2022-12-30 13:52 | Outpatient (BNVA) | payer MEDICARE, MEDICAID, SELFPAY | PROVIDERS: PCP Thoracic Surgery (Cardiothoracic Vascular Surgery); Visit Provider Thoracic Surgery (Cardiothoracic Vascular Surgery) | DX: S81.012A Laceration without foreign body, left knee, initial encounter (principal); X58.XXXA Exposure to other specified factors, initial encounter | CPT/HCPCS: 97597; A6021; A6219 ==

== ENCOUNTER → 2023-01-13 16:21 | Outpatient (BNVA) | payer MEDICARE, MEDICAID, SELFPAY | PROVIDERS: PCP Thoracic Surgery (Cardiothoracic Vascular Surgery); Visit Provider Thoracic Surgery (Cardiothoracic Vascular Surgery) | DX: S81.012D Laceration without foreign body, left knee, subsequent encounter (principal); W27.0XXD Contact with workbench tool, subsequent encounter | CPT/HCPCS: 97597 ==

== ENCOUNTER → 2023-06-07 09:13 | Outpatient (BNVA) | payer MEDICARE, MEDICAID, SELFPAY | PROVIDERS: PCP Thoracic Surgery (Cardiothoracic Vascular Surgery); Visit Provider Specialist | DX: G40.109 Localization-related (focal) (partial) symptomatic epilepsy and epileptic syndromes with simple partial seizures, not intractable, without status epilepticus; G40.409 Other generalized epilepsy and epileptic syndromes, not intractable, without status epilepticus; M75.101 Unspecified rotator cuff tear or rupture of right shoulder, not specified as traumatic | CPT/HCPCS: 20552; 20610; 96372; 99214; J1030 ==

== ENCOUNTER → 2023-09-20 09:10 | Outpatient (BNVA) | payer MEDICARE, MEDICAID, SELFPAY | PROVIDERS: PCP Thoracic Surgery (Cardiothoracic Vascular Surgery); Visit Provider Nurse Practitioner Family | DX: S91.109A Unspecified open wound of unspecified toe(s) without damage to nail, initial encounter (principal); S61.218A Laceration without foreign body of other finger without damage to nail, initial encounter; X58.XXXA Exposure to other specified factors, initial encounter; R60.0 Localized edema; M19.042 Primary osteoarthritis, left hand | CPT/HCPCS: 73130; 73630 ==

== ENCOUNTER → 2023-09-25 13:06 | Outpatient (BNVA) | payer MEDICARE, MEDICAID, SELFPAY | PROVIDERS: PCP Thoracic Surgery (Cardiothoracic Vascular Surgery); Visit Provider Thoracic Surgery (Cardiothoracic Vascular Surgery) | DX: I96 Gangrene, not elsewhere classified (principal); L97.522 Non-pressure chronic ulcer of other part of left foot with fat layer exposed; L98.499 Non-pressure chronic ulcer of skin of other sites with unspecified severity | CPT/HCPCS: 11042; 97597; 99213 ==

== ENCOUNTER → 2023-10-02 14:06 | Outpatient (BNVA) | payer MEDICARE, MEDICAID, SELFPAY | PROVIDERS: PCP Thoracic Surgery (Cardiothoracic Vascular Surgery); Visit Provider Thoracic Surgery (Cardiothoracic Vascular Surgery) | DX: I96 Gangrene, not elsewhere classified (principal); L97.522 Non-pressure chronic ulcer of other part of left foot with fat layer exposed; L98.499 Non-pressure chronic ulcer of skin of other sites with unspecified severity | CPT/HCPCS: 97597; 97598 ==

== ENCOUNTER → 2023-10-09 14:29 | Outpatient (BNVA) | payer MEDICARE, MEDICAID, SELFPAY | PROVIDERS: PCP Thoracic Surgery (Cardiothoracic Vascular Surgery); Visit Provider Nurse Practitioner Family | DX: I96 Gangrene, not elsewhere classified (principal); S91.115D Laceration without foreign body of left lesser toe(s) without damage to nail, subsequent encounter; W27.0XXD Contact with workbench tool, subsequent encounter; Z09 Encounter for follow-up examination after completed treatment for conditions other than malignant neoplasm | CPT/HCPCS: 97597; 97598 ==

== ENCOUNTER → 2023-10-16 14:24 | Outpatient (BNVA) | payer MEDICARE, MEDICAID, SELFPAY | PROVIDERS: PCP Thoracic Surgery (Cardiothoracic Vascular Surgery); Visit Provider Thoracic Surgery (Cardiothoracic Vascular Surgery) | DX: Z09 Encounter for follow-up examination after completed treatment for conditions other than malignant neoplasm (principal); Z87.2 Personal history of diseases of the skin and subcutaneous tissue | CPT/HCPCS: 99212 ==

== ENCOUNTER → 2023-12-06 09:24 | Outpatient (BNVA) | payer MEDICARE, MEDICAID, SELFPAY | PROVIDERS: PCP Family Medicine; Visit Provider Specialist | DX: G40.909 Epilepsy, unspecified, not intractable, without status epilepticus (principal); G45.3 Amaurosis fugax; I35.0 Nonrheumatic aortic (valve) stenosis; H49.22 Sixth [abducent] nerve palsy, left eye | CPT/HCPCS: 99215 ==

== ENCOUNTER → 2023-12-14 09:30 | Outpatient (BNVA) | payer MEDICARE, MEDICAID, SELFPAY | PROVIDERS: PCP Family Medicine; Visit Provider Nurse Practitioner Family | DX: L97.522 Non-pressure chronic ulcer of other part of left foot with fat layer exposed (principal) | CPT/HCPCS: 97597; 97598; 99213 ==

== ENCOUNTER → 2023-12-22 09:09 | Outpatient (BNVA) | payer MEDICARE, MEDICAID, SELFPAY | PROVIDERS: PCP Family Medicine; Visit Provider Thoracic Surgery (Cardiothoracic Vascular Surgery) | DX: Z09 Encounter for follow-up examination after completed treatment for conditions other than malignant neoplasm (principal); Z87.2 Personal history of diseases of the skin and subcutaneous tissue | CPT/HCPCS: 99212 ==

== ENCOUNTER → 2024-07-16 14:30 | Outpatient (BNVA) | payer MEDICARE, MEDICAID, SELFPAY | PROVIDERS: PCP Family Medicine; Visit Provider Specialist | DX: G45.3 Amaurosis fugax (principal); I35.0 Nonrheumatic aortic (valve) stenosis; R01.1 Cardiac murmur, unspecified; G40.909 Epilepsy, unspecified, not intractable, without status epilepticus; H49.22 Sixth [abducent] nerve palsy, left eye | CPT/HCPCS: 99214 ==

== ENCOUNTER → 2024-09-09 10:15 | Outpatient (BNVA) | payer MEDICARE, MEDICAID, SELFPAY | PROVIDERS: PCP Nurse Practitioner Family; Visit Provider Family Medicine | DX: M25.572 Pain in left ankle and joints of left foot (principal) | CPT/HCPCS: 73600 ==

== ENCOUNTER → 2024-10-29 13:03 | Outpatient (BNVA) | payer MEDICARE, MEDICAID, SELFPAY | PROVIDERS: PCP Nurse Practitioner Family; Visit Provider Family Medicine | DX: S92.002A Unspecified fracture of left calcaneus, initial encounter for closed fracture (principal); X58.XXXA Exposure to other specified factors, initial encounter | CPT/HCPCS: 73610 ==

== ENCOUNTER → 2025-01-14 14:52 | Outpatient (BNVA) | payer MEDICARE, MEDICAID, SELFPAY | PROVIDERS: PCP Family Medicine; Visit Provider Specialist | DX: G40.909 Epilepsy, unspecified, not intractable, without status epilepticus (principal); G45.3 Amaurosis fugax; I35.0 Nonrheumatic aortic (valve) stenosis; R01.1 Cardiac murmur, unspecified; H49.22 Sixth [abducent] nerve palsy, left eye | CPT/HCPCS: 99213 ==

== ENCOUNTER 2025-02-17 10:57 | Outpatient (CLI) | payer MEDICARE, MEDICAID, SELFPAY ==
--- NOTE | 2025-02-17 10:45 | CT_ITS ---
WS: [id number] LDCT LUNG CANCER SCREENING HISTORY: F17.210 - Nicotine dependence, cigarettes, uncomplicated TECHNIQUE: Axial imaging performed from the apices to 1 cm below the costophrenic angles. Coronal and sagittal reformats are submitted with axial MIP series. All CT scans at [facility] use at least one of these dose optimization techniques: automated exposure control; mA and/or kV adjustment per patient size (includes targeted exams where dose is matched to clinical indication); or iterative reconstruction. DLP: 48.50 mGy.cm DIvol: Mean CTDIvol: 0.80 (mGy) COMPARISON: None available. Diagnostic quality: Satisfactory Lungs: Moderate hyperinflation. Numerous very small peripheral micronodules in multiple lobes. No mass or nodule greater than 3 mm. No pneumonia. No endobronchial lesions. Linear atelectasis at the RIGHT lung base. Heart: Normal size heart with no pericardial effusion.. Other findings: Moderate plaque thoracic aorta. Mildly prominent pulmonary artery. No adenopathy identified. Hilar lymph nodes would not be readily visualized without IV contrast. No hiatal hernia. Multiple compression fractures in the thoracic spine beginning at T3-T7. T7 fracture is most significant at 50%. CT/CT lung screening [id number] IMPRESSION: LUNG-RADS: 2-Benign Appearance or Behavior FOLLOW UP: 12 Month: Continue annual screening with LDCT OTHER FINDINGS (S MODIFIER): None.
== END 2025-02-17 10:58 | disposition home or self-care (01) ==
PROVIDERS: PCP Family Medicine; Visit Provider Specialist
DX: Z12.2 Encounter for screening for malignant neoplasm of respiratory organs (principal); F17.210 Nicotine dependence, cigarettes, uncomplicated; R91.8 Other nonspecific abnormal finding of lung field; J98.11 Atelectasis; I70.0 Atherosclerosis of aorta; R93.89 Abnormal findings on diagnostic imaging of other specified body structures; S22.030A Wedge compression fracture of third thoracic vertebra, initial encounter for closed fracture; S22.040A Wedge compression fracture of fourth thoracic vertebra, initial encounter for closed fracture; S22.050A Wedge compression fracture of T5-T6 vertebra, initial encounter for closed fracture; S22.060A Wedge compression fracture of T7-T8 vertebra, initial encounter for closed fracture; X58.XXXA Exposure to other specified factors, initial encounter
CPT/HCPCS: 71271

== ENCOUNTER → 2025-07-15 15:24 | Outpatient (BNVA) | payer MEDICARE, MEDICAID, SELFPAY | PROVIDERS: PCP Family Medicine; Visit Provider Specialist | DX: G40.909 Epilepsy, unspecified, not intractable, without status epilepticus (principal); I35.0 Nonrheumatic aortic (valve) stenosis | CPT/HCPCS: 99213 ==